=== PATIENT | female | born 1980 | race Caucasian/White ===

== ENCOUNTER 2018-10-04 06:02 | Day surgery (SDC) | payer MEDICAID, OTHER ==
[2018-10-04] MEDS: BUPIVACAINE 0.25%/EPI (SDV) 10 ML INJ
[2018-10-04 06:56] LABS: ADD MAN DIFF? NO
[2018-10-04 07:05] LABS: WHITE BLOOD COUNT 6.1 10^3/ul (4.8-10.8)
[2018-10-04 07:05] LABS: BASOPHILS % 0.7 % (0.0-2.0); EOSINOPHILS # 0.1 10^3/ul (0.0-0.5); EOSINOPHILS % 2.3 % (0.0-7.0); HEMATOCRIT 36.4 % (37.0-47.0); HEMOGLOBIN 11.8 g/dl (12.0-16.0); LYMPHOCYTES # 1.6 10^3/ul (0.8-2.9); LYMPHOCYTES % 25.7 % (15.0-51.0); MEAN CORPUSCULAR HEMOGLOBIN 28.6 pg (29.0-33.0); MEAN CORPUSCULAR HGB CONC 32.4 g/dl (32.0-37.0); MEAN CORPUSCULAR VOLUME 88.1 fl (82.0-101.0); MONOCYTE # 0.5 10^3/ul (0.3-0.9); MONOCYTES % 8.4 % (0.0-11.0); NEUTROPHIL # 3.8 10^3/ul (1.6-7.5); NEUTROPHILS % 62.7 % (39.0-77.0); PLATELET COUNT 234 10^3/UL (140-415); RED BLOOD COUNT 4.13 10^6/ul (4.20-5.40)
[2018-10-04 07:09] LABS: INR 0.98; PROTIME 13.1 Sec (11.9-14.9)
[2018-10-04] MEDS ORDERED: ROCURONIUM 50 MG INJ (07:44)
[2018-10-04] MEDS ORDERED: ROPIVACAINE 0.5 % 30 ML VIAL (07:44)
[2018-10-04] MEDS ORDERED: CEFAZOLIN 1 GM INJ (07:44)
[2018-10-04] MEDS ORDERED: MIDAZOLAM 1 MG/ML 2 ML INJ (07:44)
[2018-10-04] MEDS ORDERED: PROPOFOL 20 ML (07:44)
[2018-10-04] MEDS ORDERED: FENTAnyl 50 MCG/ML VIAL ×2 (07:44→08:46)
[2018-10-04] MEDS ORDERED: ONDANSETRON 4 MG INJ (08:31)
[2018-10-04] MEDS ORDERED: KETOROLAC 30 MG INJ (08:31)
[2018-10-04] MEDS ORDERED: METOCLOPRAMIDE 10 MG INJ (08:31)
[2018-10-04] MEDS ORDERED: DEXAMETHASONE 4 MG/ML 1 ML INJ (08:31)
[2018-10-04] MEDS ORDERED: GLYCOPYRROLATE 0.4 MG INJ (08:43)
[2018-10-04] MEDS ORDERED: NEOSTIGMINE 3 MG/3 ML SYRINGE (08:43)
[2018-10-04] MEDS ORDERED: EPHEDrine SULFATE 50 MG/5 ML SYG IV (09:00)
[2018-10-04] MEDS ORDERED: DIPHENHYDRAMINE 50 MG INJ IV (09:00)
[2018-10-04] MEDS ORDERED: MEPERIDINE 25 MG INJ IV (09:00)
[2018-10-04] MEDS ORDERED: OXYCODONE/ACETAMINOPHEN (5/325) TAB PO ×2 (09:00)
[2018-10-04] MEDS ORDERED: METOCLOPRAMIDE 10 MG INJ IV (09:00)
[2018-10-04] MEDS ORDERED: LABETALOL HCL 20MG INJ IV (09:00)
[2018-10-04] MEDS ORDERED: HYDROmorphONE 1 MG/5 ML IV SYRINGE IV ×3 (09:00)
[2018-10-04] MEDS ORDERED: FENTAnyl 50 MCG/ML VIAL IV ×2 (09:00)
[2018-10-04] MEDS: ONDANSETRON 4 MG INJ IV (09:08)
[2018-10-04] MEDS: FENTAnyl 50 MCG/ML VIAL IV ×2 (09:08→09:17)
== END 2018-10-04 10:28 | disposition home or self-care (01) ==
LOC: SDS 06:02
DX: Z30.2 Encounter for sterilization (principal); E66.9 Obesity, unspecified; Z68.37 Body mass index [BMI] 37.0-37.9, adult
CPT/HCPCS: 58670; 71045; 85025; 85610; 85730; 88302; 93005